=== PATIENT | male | born 1980 | race Caucasian/White ===

== ENCOUNTER 2023-07-11 15:22 | Observation (INO) | payer BC ==
[~2023-07-11 15:22] MED LIST: Iopamidol 300 61% 100 ML VIAL FS ONE
[2023-07-11] MEDS ORDERED: Ondansetron PF 4 MG/2 ML Vial ONE (15:58)
[2023-07-11 16:14] LABS: #Neutrophils 13.3 10x3/uL (1.5-8.4); %Basophils 0.1 % (0.0-2.0); %Lymphocytes 3.5 % (18.0-47.0); %Monocytes 6.4 % (0.0-10.0); %Neutrophils 89.6 % (40.0-75.0); Hematocrit 43.3 % (38.8-50.0); Hemoglobin 15.3 g/dL (13.5-17.5); Mean Corpuscular HGB CONC 35.3 g/dL (32.0-36.0); Mean Corpuscular Hemoglobin 31.5 pg (27.0-33.0); Mean Corpuscular Volume 89.1 fl (81.2-95.1); Mean Platelet Volume 9.8 fl (7.4-10.4); Platelet Count 203 10x3/uL (150-450); RBC Distribution Width 11.9 % (11.5-14.5); Red Blood Cell (RBC) Count 4.86 10x6/uL (4.32-5.72); White Blood Cell (WBC) Count 14.8 10x3/uL (3.5-10.5)
[2023-07-11 16:26] LABS: ALT (SGPT) 63 U/L (8-55); AST (SGOT) 21 U/L (5-34); Alkaline Phosphatase 73 U/L (40-110); Anion Gap 15 mmol/L (10-20); BUN (Urea Nitrogen) 11 mg/dL (8.9-20.6); Bilirubin, Total 1.5 mg/dL (0.2-1.2); Calc. Creatinine Clearance 0 mL/min (70-130); Calcium 9.6 mg/dL (7.8-10.44); Carbon Dioxide 21 mmol/L (22-29); Chloride 104 mmol/L (98-107); Estimated GFR 93; Globulin 2.8 g/dL (2.4-3.5); Glucose 139 mg/dL (70-105); Magnesium 1.7 mg/dL (1.6-2.6); Potassium 4.3 mmol/L (3.5-5.1); Protein, Total 7.8 g/dL (6.0-8.3); Sodium 136 mmol/L (136-145)
[2023-07-11] MEDS ORDERED: Morphine 4 MG/ML VIAL ONE (16:56)
[2023-07-11] MEDS ORDERED: Glucagon 1 MG/ML KIT IM PRN (17:31)
[2023-07-11] MEDS ORDERED: Promethazine HCl 25 MG/ML VIAL IM PRN (17:31)
[2023-07-11] MEDS ORDERED: hydrALAZINE 20 MG/ML VIAL SLOW IVP PRN (17:31)
[2023-07-11] MEDS ORDERED: HYDROcodone/Acetaminophen 10/325 mg Tablet PO PRN (17:31)
[2023-07-11] MEDS ORDERED: Ondansetron PF 4 MG/2 ML Vial IVP PRN (17:31)
[2023-07-11] MEDS ORDERED: Ipratropium/Albuterol 3 ML NEB NEB PRN (17:31)
[2023-07-11] MEDS ORDERED: Dextrose 50% Abboject 50 ML SYRINGE SLOW IVP PRN (17:31)
[2023-07-11] MEDS ORDERED: Dextrose 5% in Water 1,000 ML IV PRN (17:31)
[2023-07-11] MEDS ORDERED: Morphine 2 MG/ML VIAL SLOW IVP PRN (17:31)
[2023-07-11] MEDS ORDERED: Ketorolac Tromethamine 30 MG (1 mL) VIAL ONE (17:43)
[2023-07-11] MEDS ORDERED: Famotidine/PF 20 mg/2ml Vial ONE (17:44)
[2023-07-11] MEDS ORDERED: D5 1/2 NS w/20 mEq KCL 1,000 ML ONE (17:59)
[2023-07-11] MEDS ORDERED: Ketorolac Tromethamine 30 MG (1 mL) VIAL IVP SCH (18:00)
[2023-07-11] MEDS ORDERED: Piperacillin/Tazobactam 3.375 GM in Sodium Chloride 0.9% 100 ML IVPB SCH (18:00)
[2023-07-11] MEDS: Famotidine/PF 20 mg/2ml Vial SLOW IVP SCH (18:02)
[2023-07-11] MEDS: Famotidine 20 MG TAB PO SCH (18:02)
[2023-07-11] MEDS: D5 1/2 NS w/20 mEq KCL 1,000 ML IV SCH (18:03)
[2023-07-11 18:20] LABS: Bilirubin Neg (Negative); Blood, Urine Negative (Negative); Clarity Clear (Clear); Glucose, Urine (Dipstick) Normal (Negative); Ketone, Urine 5 mg/dL (Negative); Leukocyte Negative (Negative); Nitrite Negative (Negative); Protein, Urine (Dipstick) 15 mg/dl (Neg-Trace); Specific Gravity, Urine 1.015 (1.005-1.030); Urobilinogen Normal mg/dL (Less than 2)
[2023-07-11] MEDS ORDERED: Piperacillin/Tazobactam 3.375 GM VIAL ONE ×2 (18:31→22:37)
[2023-07-11 18:37] LABS: Bacteria/HPF None Seen HPF (None Seen); CAUTI Indications for Culture Pelvic or flank pain; RBC/HPF None Seen HPF (0-3); Squamous Epithelial None Seen HPF (0-3); WBC/HPF None Seen HPF (0-3)
[2023-07-11 18:38] LABS: Urine Culture Reflex No No
[2023-07-11] MEDS: Piperacillin/Tazobactam 3.375 GM in Sodium Chloride 0.9% 100 ML IVPB SCH (22:45)
[2023-07-11] MEDS ORDERED: Acetaminophen 500 MG TAB ONE (23:16)
[2023-07-12 00:09] VITALS: TEMP 103.1
[2023-07-12 02:46] VITALS: BP 95/52
[2023-07-12] MEDS ORDERED: D5 1/2 NS w/20 mEq KCL 1,000 ML ONE (03:52)
[2023-07-12] MEDS: D5 1/2 NS w/20 mEq KCL 1,000 ML IV SCH (03:59)
[2023-07-12] MEDS ORDERED: Famotidine/PF 20 mg/2ml Vial ONE (07:44)
[2023-07-12] MEDS: Famotidine/PF 20 mg/2ml Vial SLOW IVP SCH (08:41)
[2023-07-12] MEDS ORDERED: Piperacillin/Tazobactam 3.375 GM VIAL ONE ×2 (09:15→14:00)
[2023-07-12] MEDS: Piperacillin/Tazobactam 3.375 GM in Sodium Chloride 0.9% 100 ML IVPB SCH ×2 (09:30→14:15)
[2023-07-12] MEDS ORDERED: fentaNYL 50 mcg/mL 1 mL Vial ONE (10:22)
[2023-07-12] MEDS ORDERED: PROPOFOL 20 ML ONE (10:22)
[2023-07-12] MEDS ORDERED: Rocuronium Bromide 10 MG/ML (10ML VIAL) ONE (10:24)
[2023-07-12] MEDS ORDERED: Dexamethasone 4 mg/ml Vial ONE (10:24)
[2023-07-12] MEDS ORDERED: Ondansetron PF 4 MG/2 ML Vial ONE (10:24)
[2023-07-12] MEDS ORDERED: Bupivacaine PF 0.5% 30 ML VIAL ONE (10:30)
[2023-07-12] MEDS ORDERED: EPINEPHrine 1 MG/ML VIAL ONE (10:30)
[2023-07-12] MEDS ORDERED: Acetaminophen 500 MG TAB ONE (10:32)
[2023-07-12] MEDS ORDERED: Succinylcholine 200 MG/10 ml SYRINGE FS ONE (10:38)
[2023-07-12] MEDS ORDERED: ePHEDrine Sulfate 50 MG/10 ML VIAL ONE (11:03)
[2023-07-12] MEDS ORDERED: Glycopyrrolate 0.2 MG/ML 5 ML SYRINGE ONE (11:23)
[2023-07-12] MEDS ORDERED: Ketorolac Tromethamine 30 MG (1 mL) VIAL ONE (11:23)
[2023-07-12] MEDS: Famotidine 20 MG TAB PO SCH (12:39)
[2023-07-12] MEDS ORDERED: HYDROcodone/Acetaminophen 10/325 mg Tablet ONE (16:02)
[2023-07-12] MEDS ORDERED: Famotidine/PF 20 mg/2ml Vial SLOW IVP PRN (16:15)
== END 2023-07-12 18:00 | disposition home or self-care (01) ==
LOC: EEVIPCON 15:22 → CSHERS 15:22 → CSHERHOLD 17:15 → CSHTELE 07-12 09:54
PROVIDERS: ADMIT Surgery; ATTEND Surgery
PROC: 0DTJ4ZZ Resection of Appendix, Percutaneous Endoscopic Approach (ICD-10-PCS; principal; 2023-07-12)
DX: K35.80 Unspecified acute appendicitis (principal); E78.5 Hyperlipidemia, unspecified; F10.90 Alcohol use, unspecified, uncomplicated; E66.9 Obesity, unspecified
CPT/HCPCS: 74177; 80053; 81001; 83735; 85025; 88304; 96374; 96375; A4649; J0171; J1100; J1885; J2270; J2405; J2543; J2704; J3010; J3480; J3490; Q9967; S0020; S0028